=== PATIENT | male | born 1980 | race Caucasian/White ===

== ENCOUNTER 2017-04-27 23:21 | Inpatient (IN) | payer OTHER ==
[~2017-04-27] VITALS: Ht 188 cm; Wt 96.2 kg
--- NOTE | 2017-04-27 23:49 | NUR ---
pt bib ra with a c/o ams. pt is not speaking to staff. pt is on the monitor and continuous pulse ox. dr. magana was at the bedside. evaluating the pt.
[2017-04-27] MEDS ORDERED: ONDANSETRON HCL/PF 4 MG/2 ML VIAL ONE (23:54)
[2017-04-27] MEDS ORDERED: HALOPERIDOL LACTATE INJ 5 MG/ML VIAL ONE (23:58)
[2017-04-28] VITALS (12 sets, daily range): BP systolic 88–140; BP diastolic 51–91
[2017-04-28] MEDS ORDERED: ONDANSETRON HCL/PF - ER 4 MG/2 ML VIAL IV ONE
[2017-04-28] MEDS ORDERED: HALOPERIDOL LACTATE INJ 5 MG/ML VIAL IM ONE
[2017-04-28] MEDS ORDERED: IV NS 0.9% 1,000 ML BAG IV ONE
--- NOTE | 2017-04-28 | NUR ---
PT PULLED OFF ALL MONITOR LEADS AND IS TRYING TO GET OUT OF BED. PT PLACED ON 4 POINT RESTRAINTS.
--- NOTE | 2017-04-28 00:20 | NUR ---
PT LEFT FOR CT. 4 POINT RESTRAINTS REMOVED.
[2017-04-28 00:40] LABS: CALCIUM, SERUM 9.7 mg/dL (8.5-10.1); CARBON DIOXIDE 23 mmol/L (21-32); CHLORIDE 102 mmol/L (98-107); CREATININE 1.6 mg/dL (0.6-1.3); GLUCOSE 144 mg/dL (74-106); POTASSIUM 3.3 mmol/L (3.5-5.1); SODIUM SERUM 142 mmol/L (136-145); UREA NITROGEN, BLOOD 16 mg/dL (7-18)
[2017-04-28 00:47] LABS: ACETAMINOPHEN 0 ug/ml (10-30); ALANINE AMINOTRANSFERASE 149 U/L (12-78); ALBUMIN 5.2 g/dL (3.4-5.0); ALCOHOL, BLOOD < 3 mg/dL (0-0); ALKALINE PHOSPHATASE 95 U/L (46-116); ASPARTATE AMINOTRANSFERASE 38 U/L (15-37); BASOPHILS % (AUTO) 0.1 % (0.0-2.0); BILIRUBIN,DIRECT 0.2 mg/dL (0.0-0.2); BILIRUBIN,TOTAL 1.4 mg/dL (0.2-1.0); HEMATOCRIT 54 % (39-51); HEMOGLOBIN 18.1 g/dL (13.5-17.5); LYMPHOCYTES # (AUTO) 0.9 /CMM (0.8-4.8); LYMPHOCYTES % (AUTO) 6.6 % (20.0-44.0); MEAN CORPUSCULAR HEMOGLOBIN 27 PG (26.0-33.0); MEAN CORPUSCULAR HGB CONC 34 g/dl (31.0-36.0); MEAN CORPUSCULAR VOLUME 82 fL (80-96); MONOCYTES # (AUTO) 0.7 /CMM (0.1-1.30); MONOCYTES % (AUTO) 4.7 % (2.0-12.0); NEUTROPHILS # (AUTO) 12.6 /CMM (1.8-8.9); NEUTROPHILS % (AUTO) 88.6 % (43.0-81.0); PLATELET COUNT (AUTO) 241 /CMM (150-450); RED BLOOD CELL COUNT(AUTO) 6.59 MIL/uL (4.5-6.0); SALICYLATE < 0.2 mg/dL (2.8-20.0); TOTAL PROTEIN, SERUM 9.8 g/dL (6.4-8.2); WHITE BLOOD COUNT (AUTO) 14.2 K/uL (4.3-11.0)
--- NOTE | 2017-04-28 00:55 | NUR ---
PT RETURNED FROM CT.
[2017-04-28] MEDS ORDERED: HALOPERIDOL LACTATE INJ 5 MG/ML VIAL IV ONE (01:30)
[2017-04-28] MEDS ORDERED: DEXAMETHASONE SOD PHOSPHATE 10 MG/ML VIAL IV ONE (01:30)
[2017-04-28] MEDS ORDERED: LORAZEPAM INJ 2 MG/ML VIAL IV ONE (01:30)
[2017-04-28] MEDS ORDERED: CEFTRIAXONE 1GM BAG (ER ONLY) 1 GM/50 ML PIGGYBACK IV ONE (01:30)
--- NOTE | 2017-04-28 01:30 | NUR ---
PT PLACED BACK IN 4 POINT RETRAINTS.
--- NOTE | 2017-04-28 01:30 | NUR ---
DR. MCGRAW IS AT THE BEDSIDE SPEAKING TO THE PT'S .
[2017-04-28] MEDS ORDERED: HALOPERIDOL LACTATE INJ 5 MG/ML VIAL ONE (01:31)
[2017-04-28] MEDS ORDERED: CEFTRIAXONE 1GM BAG (ER ONLY) 50 ML IV ONE (01:31)
[2017-04-28] MEDS ORDERED: DEXAMETHASONE SOD PHOSPHATE 10 MG/ML VIAL ONE (01:31)
[2017-04-28] MEDS ORDERED: LORAZEPAM INJ 2 MG/ML VIAL ONE ×2 (01:32→05:23)
--- NOTE | 2017-04-28 01:40 | NUR ---
PT'S CONSENTED VERBALLY TO DR. MCGRAW TO PERFORM THE LP TO RULE OUT MENINGITIS. PT MOVING TOO MUCH FOR DR. MCGRAW TO PERFORM THE LP.
--- NOTE | 2017-04-28 01:40 | NUR ---
Note king in EDM - 04/28/17 at 0218 by DEYSI PT'S CONSENTED VERBALLY TO DR. MCGRAW TO PERFORM THE LP TO RULE OUT MENINGITIS. PT MOVING TOO MUCH FOR DR. MCGRAW TO PERFORM THE LP.
[2017-04-28] MEDS ORDERED: ACETAMINOPHEN 650 MG/SUPP.RECT RC ONE ×2 (02:39→03:00)
--- NOTE | 2017-04-28 03:38 | NUR ---
PT'S AXILLARY TEMP IS 102.8. DR. MCGRAW NOTIFIED.
--- NOTE | 2017-04-28 03:38 | NUR ---
PT IS TRYING TO GET UP OUT OF BED. PT IS STILL IN 4 PT RESTRAINTS. PT IS DIAPHORETIC. DR. MCGRAW IS AWARE.
[2017-04-28] MEDS ORDERED: KETOROLAC TROMETHAMINE INJ 30 MG/ML VIAL ONE (03:41)
--- NOTE | 2017-04-28 03:59 | NUR ---
PT IS TRYING TO SIT UP IN BED. PT'S IS AT THE BEDSIDE AND IS TALKING THE PT INTO LYING DOWN AND RESTING. PT IS NOT SPEAKING TO US. PT IS DIAPHORETIC, DR. MCGRAW IS AWARE.
[2017-04-28] MEDS ORDERED: KETOROLAC TROMETHAMINE INJ 30 MG/ML VIAL IV ONE (04:00)
--- NOTE | 2017-04-28 04:01 | NUR ---
XRAY IN PROGRESS AT THE BEDSIDE.
--- NOTE | 2017-04-28 04:23 | NUR ---
PT WAS CLEANED AND COLD COMPRESSES PLACED ON PT'S HEAD AND BEHIND NECK. NEW LINENS APPLIED. DIAPPER APPLIED. NEW GOWN. PT PLACED BACK ON THE MONITOR.
--- NOTE | 2017-04-28 05:09 | NUR ---
CALLING REPORT TO KAMRAN ANN
--- NOTE | 2017-04-28 05:21 | NUR ---
PT IS NOW ONLY IN 1 RESTRAINT. RUE. PT APPEARS CALM. WILL CONTINUE TO MONITOR.
--- NOTE | 2017-04-28 05:30 | NUR ---
RN LAUREN ADMITTING NOTES ADMITTED 36 YR OLD MALE, IN ALTERED STATE, ON NC@ 2L, WELL TOLERATED, NO SIGN OF FACIAL GRIMANCING NOTED, ADMIT DIAGNOSIS, R/O MENIGITIS, VS STABLE, AFEBRILE, HEAD TO TOE ASSESSMENT COMPLETED SKIN INTACT, PEEWEE PARLIAMENTARY ARCHIVIST ADMITTING PT, ASSESSED PT BY BED SIDE, PT NOT ABLE TO FOLLOW COMMAND, ALL ADMITTING ORDERS ENTERED PER PROTOCOL, NEURO CONSULT ORDERED WELL POSSIBLE LP TO BE DONE. WITH LAC 16 G, PATENT STARTED ON NS@100ML/HR, WELL JODY, NO INFILTRATION AT SITE. BY BED SIDE, ALL NEEDS MET.
[2017-04-28] MEDS ORDERED: Z GUARD REMEDY 2 OZ OINT TP PRN (06:00)
[2017-04-28] MEDS ORDERED: ZOLPIDEM TARTRATE 5 MG TABLET PO PRN (06:00)
[2017-04-28] MEDS ORDERED: HYDROCODONE/APAP 5/325MG 1 EACH TABLET PO PRN (06:00)
[2017-04-28] MEDS ORDERED: MAGNESIUM HYDROXIDE 30 ML UDC PO PRN (06:00)
[2017-04-28] MEDS: IV NS 0.9% 1,000 ML IV PRN ×3 (06:46→21:52)
--- NOTE | 2017-04-28 07:44 | NUR ---
LAUREN RN NOTE PATIENT IN BED APPEARS EXTREMELY DISORIENTED , PT AT BEDSIDE UNABLE TO REORIENT THE PATIENT PATIENT IS NON VERBAL AT THIS TIME REASON UNKNOWN PATIENT STATES THAT HE HAS BEEN NON VERBAL SINCE 9PM LAST NIGHT 04/27/17. PAIN APPEARS IN PAIN , SKIN RED, NO COUGHING NOTED , NO ISOLATION NOTED. AM RN PLACED PATIENT ON DROPLET ISOLATION DUE TO RULE OUT MENINGITIS , NOTIFIED CHARGE NURSE , PATIENT IS CURRENTLY AND HAS BEEN GIVEN A MASK WHILE AT BED SIDE. PATIENT POTASSIUM NOT GIVEN YET DUE TO MEDICATION NOT BEING AVAILABLE AT THIS TIME. RN WILL HANG FIRST DOSE SOON THE MEDICATION IS AVAILABLE. RN WILL CONTINUE TO FOLLOW
[2017-04-28] MEDS: ONDANSETRON HCL/PF 4 MG/2 ML VIAL IVP PRN ×3 (08:01→23:02)
[2017-04-28] MEDS ORDERED: VANCOMYCIN 1 GM in IV D5W 250 ML IV ONE (08:58)
[2017-04-28] MEDS ORDERED: FEE PK DOSING 1 MIN EA MC ONE (09:10)
[2017-04-28] MEDS: DEXAMETHASONE SOD PHOSPHATE 4 MG/ML VIAL IV SCH ×3 (09:14→22:53)
--- NOTE | 2017-04-28 09:53 | NUR ---
RN NOTE DISORIENTATION CONTINUES PATIENT HAS PULLED OUT IV ACCESS CHARGE NURSE AWARE AND HAS BEEN NOTIFIED MULTIPLE TIMES ABOUT THE NEED FOR A SITTER DUE TO PATIENT ALTERED MENTAL STATUS ,
[2017-04-28] MEDS ORDERED: CEFTRIAXONE 1 G in IV D5W 50 ML IV ONE (11:00)
[2017-04-28] MEDS ORDERED: AMPICILLIN 2 GM in IV NS 0.9% 100 ML IV SCH (11:00)
--- NOTE | 2017-04-28 11:00 | NUR ---
RN NOTE PATIENT LUMBER PUNCTURE PERFORMED AT BEDSIDE BY MD JEFFERS, RN ASSISTED AT BESIDE WELL MD TOOK SAMPLES PERSONAL TO THE LAB TO RECEIVE CULTURE RESULT. PATIENT TOLERATED WELL PATIENT WILL BE TRANSFERRED TO ICU REPORT GIVEN TO LOU COIN MACHINE OPERATOR, 2 GRAM ROCEPHIN AND AMPICILLIN SENT WITH PATIENT TO ICU , VANCOMYCIN ADMINISTERED PER ORDER . PATIENT REMAINS LETHARGIC HOWEVER AX0 X 3
--- NOTE | 2017-04-28 11:30 | NUR ---
SENIOR BOOKKEEPER RECEIVED PATIENT AWAKE, LETHARGIC IN APPEARANCE AFEBRILE COMPLAINTS OF HEADACHE WITH AN ON GOING IVF NS AT 100 ML MAINTAINED ON DROPLET ISOLATION ALL EXTREMITIES WITHIN NORMAL MONITORED CLOSELY
[2017-04-28 11:50] LABS: CSF GLUCOSE < 40 mg/dL (40-70); CSF PROTEIN 634.5 mg/dL (15-45)
[2017-04-28] MEDS: KETOROLAC TROMETHAMINE INJ 30 MG/ML VIAL IV PRN ×3 (12:22→23:33)
[2017-04-28] MEDS: AMPICILLIN 2 GM in IV NS 0.9% 100 ML IV SCH ×3 (12:59→20:46)
--- NOTE | 2017-04-28 13:08 | NUR ---
PROCESSING SUPERVISOR CALLED UP PHARMACY FOR POTASSIUM PREMIX SINCE ITS UNAVAILABLE IN THE [facility] IS STILL PREPARING MEDICATION FIRST BAG OF AMPICILLIN IV IS GIVEN AT 1214 THUS 1300 AMPICILLIN BAG IS NOT BE GIVEN SINCE ONLY THE TIMING WAS CHANGED FOR THE MEDICATION
[2017-04-28] MEDS: METRONIDAZOLE 500MG/ NS 100ML 500 MG in PREMIX 1 EA IV SCH ×2 (14:07→21:30)
[2017-04-28] MEDS: POTASSIUM CL. PREMIX PERIPHER. 50 ML IV SCH ×4 (16:28→20:46)
[2017-04-28] MEDS: ACETAMINOPHEN 325 MG TABLET PO PRN ×2 (16:49→23:33)
--- NOTE | 2017-04-28 18:24 | NUR ---
LAUNDERER HAND PATIENT STILL HAS SEVERE HEADACHE, LIGHT SENSITIVITY NOTED WELL PLACED ON A DIM LIT ROOM PAIN MEDICATION GIVEN ROUND THE CLOCK ICE CHIPS OFFERED MONITORED CLOSELY ENDORSED TO NOD
--- NOTE | 2017-04-28 19:20 | NUR ---
MACHINE ASSEMBLER SUPERVISOR NOTE RECEIVED PATIENT IN BED, SLEEPING COMFORTABLY. PATIENT OBSERVED TO BE LETHARGIC, DROWSY. PATIENT IS ALERT AND ORIENTED X2-3. ON DROPLET PRECAUTION D/T R/O MENINGITIS WITH LUMBAR TAP DONE THIS AM, PATIENT ON ATB. PATIENT IS SR WITH HR OF 70. PATIENT'S AT BEDSIDE. PATIENT WITH NO DISTRESS AT THIS TIME. IVF OF NS AT 150CC/HR RUNNING. PIV ON R AC AND R FOREARM, INTACT AND PATENT. NEEDS ANTICIPATED AND MET. SAFETY AND COMFORT ENSURED. WILL MONITOR CLOSELY.
--- NOTE | 2017-04-28 21:17 | NUR ---
RN NOTE LATE ENTRY INITIAL PHYSICAL ASSESSMENT COMPLETE. PM CHARGE EVITA NURSE NOTIFIED ABOUT THE COMPLETION OF ASSESSMENT. ICU CHARGE NURSE LEONIE NOTIFIED BY CHARGE NURSE NISHANT JAMA COMPLETED THE ASSESSMENT TO TH BEST OF HER KNOWLEDGE.
[2017-04-28] MEDS: VANCOMYCIN 1 GM in IV D5W 250 ML IV SCH (22:52)
--- NOTE | 2017-04-28 23:35 | NUR ---
WIRE FRAME DIPPER NOTE PATIENT COMPLAINING OF SEVERE HEADACHE, PRESSURE LIKE AND THROBBING, 10/10 PAIN SCALE, AGGRAVATED WITH COUGHING AND SNEEZING. PATIENT MEDICATED WITH DECADRON ORDERED AND TORADOL PRN. WILL MONITOR CLOSELY.
[2017-04-29] VITALS (28 sets, daily range): BP systolic 82–145; BP diastolic 36–93
[2017-04-29] MEDS ORDERED: MORPHINE SULFATE INJ 2 MG/ML DISP.SYRIN IV ONE
--- NOTE | 2017-04-29 | NUR ---
FORMING MACHINE TENDER NOTE BRANDT VIDES NP, MADE AWARE OF THE PATIENT'S C/O PAIN. COMMERCIAL PROPERTY MANAGER ASSESSED PATIENT, OBSERVED TO BE MORE ALERT AND ORIENTED WHEN COMPARED UPON ADMIT. ORDER PLACED FOR ONE TIME PAIN MEDICATION, TO BE GIVEN ORDERED. PAIN IS UNRELIEVED WITH TORADOL GIVEN PRIOR. WILL MONITOR FOR EFFECTIVENESS.
[2017-04-29] MEDS ORDERED: MORPHINE SULFATE INJ 2 MG/ML DISP.SYRIN ONE (00:07)
[2017-04-29] MEDS: IV NS 0.9% 1,000 ML IV PRN ×2 (01:10→12:44)
[2017-04-29] MEDS: AMPICILLIN 2 GM in IV NS 0.9% 100 ML IV SCH ×6 (01:10→21:38)
--- NOTE | 2017-04-29 01:22 | NUR ---
SALES PROFESSIONAL BILINGUAL NOTE PATIENT IN BED, SLEEPING COMFORTABLY. AROUSABLE WITH VERBAL AND TACTILE STIMULI. PATIENT IN NO DISTRESS. VS MONITORED CLOSELY, NOTED MARGINAL BP POST PAIN MEDICATION GIVEN FOR C/O SEVERE HEADACHE, 02/07. CURRENT VS ARE: 89/51, 79, 20, 98%, AFEBRILE. ON CLOSE MONITORING.
[2017-04-29] MEDS ORDERED: CEFTRIAXONE 1 G in IV D5W 50 ML IV SCH (02:00)
[2017-04-29] MEDS: CEFTRIAXONE 2 G in IV D5W 100 ML IV SCH ×2 (02:02→14:28)
[2017-04-29] MEDS: DEXAMETHASONE SOD PHOSPHATE 4 MG/ML VIAL IV SCH ×4 (05:03→22:30)
[2017-04-29] MEDS: METRONIDAZOLE 500MG/ NS 100ML 500 MG in PREMIX 1 EA IV SCH ×3 (05:03→22:27)
[2017-04-29 05:22] LABS: BASOPHILS # (AUTO) 0.1 /CMM (0.0-0.2); BASOPHILS % (AUTO) 0.2 % (0.0-2.0); HEMATOCRIT 39 % (39-51); HEMOGLOBIN 13.6 g/dL (13.5-17.5); LYMPHOCYTES # (AUTO) 1.2 /CMM (0.8-4.8); LYMPHOCYTES % (AUTO) 3.7 % (20.0-44.0); MEAN CORPUSCULAR HEMOGLOBIN 28 PG (26.0-33.0); MEAN CORPUSCULAR HGB CONC 35 g/dl (31.0-36.0); MEAN CORPUSCULAR VOLUME 81 fL (80-96); MONOCYTES # (AUTO) 1.5 /CMM (0.1-1.30); MONOCYTES % (AUTO) 4.9 % (2.0-12.0); NEUTROPHILS # (AUTO) 28.7 /CMM (1.8-8.9); NEUTROPHILS % (AUTO) 91.2 % (43.0-81.0); PLATELET COUNT (AUTO) 224 /CMM (150-450); RDW COEFFICIENT OF VARIATION 12.4 (11.5-15.0); RED BLOOD CELL COUNT(AUTO) 4.87 MIL/uL (4.5-6.0)
[2017-04-29 05:32] LABS: WHITE BLOOD COUNT (AUTO) 31.5 K/uL (4.3-11.0)
[2017-04-29 05:41] LABS: BILIRUBIN,TOTAL 0.4 mg/dL (0.2-1.0); CALCIUM, SERUM 8.5 mg/dL (8.5-10.1); CREATININE 1.2 mg/dL (0.6-1.3); MAGNESIUM 2.3 mg/dL (1.8-2.4); PHOSPHORUS 2.8 mg/dL (2.5-4.9); POTASSIUM 4.9 mmol/L (3.5-5.1); TOTAL PROTEIN, SERUM 6.8 g/dL (6.4-8.2)
--- NOTE | 2017-04-29 06:00 | NUR ---
STONE OPERATOR NOTE PATIENT'S CSF WBC IS NOTED TO BE 20,480. PATIENT'S AM CBC DRAWN WITH WBC VALUE OF 31.5. INFORMED BRANDT VIDES NP OF THE NOTED VALUES. PATIENT ALSO NOTED WITH URINE OUTPUT OF 750cc, VIDAL COLORED URINE FOR THE SHIFT; PATIENT WAS GIVEN IV BOLUS 2L ORDERED WITH IVF ORDERED OF 150cc/hr. BRANDT KNOT PICKER CLOTH MADE AWARE. NNO GIVEN. PATIENT IS ON 4 ATB FOR EMPIRIC THERAPY, AWAITING ID CONSULT.
[2017-04-29] MEDS: ONDANSETRON HCL/PF 4 MG/2 ML VIAL IVP PRN ×3 (06:11→21:48)
[2017-04-29] MEDS: KETOROLAC TROMETHAMINE INJ 30 MG/ML VIAL IV PRN (06:12)
[2017-04-29 06:26] LABS: BAND % (MANUAL) 23 % (0.0-5.0); LYMPHOCYTES % (MANUAL) 3 % (16-48); MONOCYTES % (MANUAL) 11 % (0-11.0); NEUTROPHILS % (MANUAL) 63 (42-76)
--- NOTE | 2017-04-29 06:31 | NUR ---
CNC FIELD SERVICE ENGINEER NOTE PATIENT COMPLAINED OF SEVERE HEADACHE 02/07 WITH VS CHANGES OF SBP AT 136/82, HR OF 81. PATIENT WITH X1 EPISODE OF EMESIS, 100cc, BILE CONSISTENCY. PATIENT GIVEN TORADOL AND ZOFRAN PRN. NEEDS ANTICIPATED AND MET. SAFETY AND COMFORT ENSURED. FAMILY AT BEDSIDE.
--- NOTE | 2017-04-29 07:30 | NUR ---
MEMBERSHIP MANAGER RECEIVED PATIENT AWAKE SITTING ON BED WITH ON GOING IVF AT 150 ML/HR ALERT ORIENTED X 3 AFEBRILE COMPLAINTS OF HEADACHE GIVEN TYLENOL FOR PAIN FOR THE MEANTIME NO NAUSEA OR VOMITING AT THE MOMENT
[2017-04-29] MEDS: ACETAMINOPHEN 325 MG TABLET PO PRN (09:03)
[2017-04-29] MEDS: VANCOMYCIN 1 GM in IV D5W 250 ML IV SCH (09:03)
[2017-04-29] MEDS ORDERED: MORPHINE SULFATE INJ 2 MG/ML DISP.SYRIN IM PRN (10:00)
[2017-04-29] MEDS ORDERED: MORPHINE SULFATE INJ 4 MG/ML DISP.SYRIN IV PRN (10:30)
--- NOTE | 2017-04-29 10:37 | NUR ---
COMMUNICATION EQUIPMENT REPAIRER ASKED DR. VORA IF MORPHINE CAN BE GIVEN TO PATIENT FOR SEVERE PAIN MORPHINE IS ORDERED FOR 2 MG q1 PRN MONITORED CLOSELY
[2017-04-29] MEDS: MORPHINE SULFATE INJ 4 MG/ML DISP.SYRIN IV PRN ×3 (14:29→21:39)
[2017-04-29] MEDS ORDERED: Potassium Chloride 20 MEQ in IV D5/0.45 NACL 1,000 ML IV PRN (15:30)
[2017-04-29] MEDS: IV D5/0.45 NACL 1,000 ML IV PRN (16:53)
[2017-04-29] MEDS: VANCOMYCIN 1.25 GM in IV D5W 500 ML IV SCH (17:40)
--- NOTE | 2017-04-29 19:18 | NUR ---
TOWER DIRECTOR NOTE RECEIVED PATIENT IN BED, AWAKE AND ALERT AND ORIENTED X4. PATIENT MEDICATED WITH MORPHINE BY AM NURSE AT 1830, PATIENT STILL COMPLAINING OF ACUTE HEADACHE, 3/10, ACHING AND CRAMPING. PATIENT'S NEEDS ANTICIPATED AND MET AT THIS TIME. SAFETY AND COMFORT ENSURED. PATIENT IS ON ROOM AIR, SR AT 86. IVF OF D5 1/2NS RUNNING AT 80cc/hr, VANCO INFUSING ORDERED. STILL ON DROPLET PRECAUTIONS, CLOSELY OBSERVED. WILL MONITOR CLOSELY.
[2017-04-30] VITALS (14 sets, daily range): BP systolic 104–129; BP diastolic 56–87
[2017-04-30] MEDS: VANCOMYCIN 1.25 GM in IV D5W 500 ML IV SCH ×3 (00:08→18:16)
[2017-04-30] MEDS: AMPICILLIN 2 GM in IV NS 0.9% 100 ML IV SCH ×6 (02:02→21:00)
[2017-04-30] MEDS: CEFTRIAXONE 2 G in IV D5W 100 ML IV SCH ×2 (02:45→15:29)
[2017-04-30] MEDS: MORPHINE SULFATE INJ 4 MG/ML DISP.SYRIN IV PRN ×6 (03:08→23:49)
[2017-04-30] MEDS: ONDANSETRON HCL/PF 4 MG/2 ML VIAL IVP PRN ×3 (03:08→18:27)
[2017-04-30] MEDS: DEXAMETHASONE SOD PHOSPHATE 4 MG/ML VIAL IV SCH ×4 (04:42→23:18)
[2017-04-30] MEDS: METRONIDAZOLE 500MG/ NS 100ML 500 MG in PREMIX 1 EA IV SCH ×3 (04:43→23:18)
[2017-04-30 05:49] LABS: CALCIUM, SERUM 8.5 mg/dL (8.5-10.1); POTASSIUM 4.2 mmol/L (3.5-5.1)
--- NOTE | 2017-04-30 06:34 | NUR ---
LAMP SHADE MAKER NOTE PATIENT WITH NO ACUTE CHANGE IN CONDITION OBSERVED OVERNIGHT. PATIENT STILL COMPLAINING OF HEADACHE AND BACK PAIN, PATIENT'S PAIN MANAGED WELL WITH NURSING INTERVENTIONS AND PRN MORPHINE SULFATE ORDERED. VS MONITORED CLOSELY. NO OTHER SIGNS OF INFECTION NOTED. ALL DUE MEDS GIVEN ORDERED. IVF ORDERED. PATIENT WITH GOOD UO OBSERVED, PATIENT'S URINE CHARACTERISTICS IS OBSERVED TO BE FROM VIDAL COLORED TO CLEAR, YELLOW URINE. REMAINS SR. STABLE ON ROOM AIR WITH NO RESPIRATORY DISTRESS. NEEDS ANTICIPATED AND MET. SAFETY AND COMFORT ENSURED. BED IN LOW AND LOCKED POSITION. CALL LIGHT IN REACH. WILL ENDORSE ACCORDINGLY FOR CONTINUITY OF CARE.
--- NOTE | 2017-04-30 07:30 | NUR ---
IT ENGINEER RECEIVED PATIENT AWAKE LYING ON BED WITH ONGOING IV RUNNING AT 80 ML/HR AFEBRILE HEADACHE NOTED OFFERED MEAL BUT STILL WITH POOR APPETITE ABLE TO TRANSFER TO COMMODE BY HIMSELF PATIENT IS MORE ALERT MONITORED CLOSELY
--- NOTE | 2017-04-30 10:21 | NUR ---
SECURITIES ATTORNEY PATIENT IS TRANSFERRED TO [facility], REPOST GIVEN TO SOON, CHARGE NURSE
--- NOTE | 2017-04-30 11:00 | NUR ---
DIRECTOR OF PLANT OPERATIONS NOTE RECEIVED PATIENT ROM ICU ALERT,ORIENTED X3 PLACED ON TELE SR , BED IN LOWEST AND LOCKED POSITION ON IVF ORDERED FAMILY AT BEDSIDE, PLAN OF CARE DISCUSSED WITH PATIENT, WILL CONT TO MONITOR CLOSELY
--- NOTE | 2017-04-30 13:00 | NUR ---
HARNESS INSTALLER NOTE EEN BY BINA JEFFERS DNP
[2017-04-30] MEDS ORDERED: oxyCODONE/APAP (5/325 MG) 1 UDTAB TABLET PO PRN (17:00)
--- NOTE | 2017-04-30 18:00 | NUR ---
COMPUTERIZED MILL MILL RECORDER NOTE NEW HL ON LT AC FREDI 20 INSERTED WITH GOOD BLOOD RETURN
--- NOTE | 2017-04-30 18:21 | NUR ---
RUNNER MAN NOTE VANCO LEVEL OK TO ADMINISTER VANCO PER PHARMACIST
--- NOTE | 2017-04-30 18:51 | NUR ---
SHIP UNLOADER NOTE ZOFRAN IVP GIVEN ORDERED WILL F]U ,FAMILY AT BEDSIDE
[2017-05-01] VITALS: BP 107/63
[2017-05-01] MEDS: AMPICILLIN 2 GM in IV NS 0.9% 100 ML IV SCH ×6 (01:24→20:01)
[2017-05-01] MEDS: VANCOMYCIN 1.25 GM in IV D5W 500 ML IV SCH ×3 (02:01→17:00)
[2017-05-01 04:00] VITALS: BP 109/57
[2017-05-01] MEDS: CEFTRIAXONE 2 G in IV D5W 100 ML IV SCH ×2 (04:14→14:59)
[2017-05-01] MEDS: DEXAMETHASONE SOD PHOSPHATE 4 MG/ML VIAL IV SCH ×3 (04:54→17:01)
[2017-05-01] MEDS: IV D5/0.45 NACL 1,000 ML IV PRN (04:55)
[2017-05-01] MEDS: METRONIDAZOLE 500MG/ NS 100ML 500 MG in PREMIX 1 EA IV SCH ×3 (04:55→20:45)
[2017-05-01 06:16] LABS: BASOPHILS % (AUTO) 0.1 % (0.0-2.0); HEMATOCRIT 37 % (39-51); HEMOGLOBIN 12.7 g/dL (13.5-17.5); LYMPHOCYTES # (AUTO) 1.4 /CMM (0.8-4.8); LYMPHOCYTES % (AUTO) 7.7 % (20.0-44.0); MEAN CORPUSCULAR HEMOGLOBIN 28 PG (26.0-33.0); MEAN CORPUSCULAR HGB CONC 35 g/dl (31.0-36.0); MEAN CORPUSCULAR VOLUME 81 fL (80-96); MONOCYTES # (AUTO) 0.8 /CMM (0.1-1.30); MONOCYTES % (AUTO) 4.2 % (2.0-12.0); NEUTROPHILS # (AUTO) 16.3 /CMM (1.8-8.9); PLATELET COUNT (AUTO) 290 /CMM (150-450); RDW COEFFICIENT OF VARIATION 12.6 (11.5-15.0); RED BLOOD CELL COUNT(AUTO) 4.53 MIL/uL (4.5-6.0); WHITE BLOOD COUNT (AUTO) 18.5 K/uL (4.3-11.0)
[2017-05-01 07:15] LABS: CALCIUM, SERUM 8.4 mg/dL (8.5-10.1); MAGNESIUM 2.1 mg/dL (1.8-2.4); PHOSPHORUS 3.1 mg/dL (2.5-4.9); POTASSIUM 4.1 mmol/L (3.5-5.1)
--- NOTE | 2017-05-01 07:26 | NUR ---
EDUCATION REPORTER NOTES RECEIVED PT ON BED AWAKE ORIENTED X4 ON ROOM AIR SATURATING WELL. IV ACCESS ON LAC #22 NO SIGN OF REDNESS OR PAIN, IV ACCESS D51/2 NS 80ML/HR RUNNING WELL. SIDE RAILS UP. HEAD OF BED ELEVATED. CALL LIGHT WITHIN REACH. WILL CONTINUE TO MONITOR PT CLOSELY.
[2017-05-01 08:00] VITALS: BP 101/57
[2017-05-01] MEDS: ACETAMINOPHEN 325 MG TABLET PO PRN (08:45)
[2017-05-01 12:00] VITALS: BP_SYST 103; BP_SYST 110; BP_DIAS 54; BP_DIAS 60
[2017-05-01 16:00] VITALS: BP 107/58
[2017-05-01] MEDS: MORPHINE SULFATE INJ 4 MG/ML DISP.SYRIN IV PRN ×2 (16:45→23:48)
--- NOTE | 2017-05-01 18:47 | NUR ---
WAGON WASHER NOTES NO ACUTE CHANGES NOTED THE SHIFT. ON ROOM AIR TOLERATING WELL, NO SIGN OF DISTRESS. DUE MEDS GIVEN. HEAD OF BED ELEVATED. WILL ENDORSE TO THE PM NURSE.
--- NOTE | 2017-05-01 19:15 | NUR ---
KETTLE OPERATOR HEAD NOTES. RECEIVED PATIENT AND REPORT FROM DAY SHIFT.
[2017-05-01 20:00] VITALS: BP 100/56
[2017-05-02] VITALS: BP 117/65
[2017-05-02] MEDS: AMPICILLIN 2 GM in IV NS 0.9% 100 ML IV SCH ×6 (00:07→20:31)
[2017-05-02] MEDS: VANCOMYCIN 1.25 GM in IV D5W 500 ML IV SCH ×3 (01:11→18:16)
[2017-05-02] MEDS: CEFTRIAXONE 2 G in IV D5W 100 ML IV SCH ×2 (03:34→14:16)
[2017-05-02 04:00] VITALS: BP 99/56
[2017-05-02] MEDS: METRONIDAZOLE 500MG/ NS 100ML 500 MG in PREMIX 1 EA IV SCH (04:50)
[2017-05-02] MEDS ORDERED: DEXAMETHASONE SOD PHOSPHATE 4 MG/ML VIAL IV SCH (05:00)
[2017-05-02 07:30] LABS: BASOPHILS % (AUTO) 0.1 % (0.0-2.0); EOSINOPHILS % (AUTO) 0.1 % (0.0-6.0); HEMATOCRIT 38 % (39-51); HEMOGLOBIN 13.1 g/dL (13.5-17.5); LYMPHOCYTES # (AUTO) 1.8 /CMM (0.8-4.8); LYMPHOCYTES % (AUTO) 9.9 % (20.0-44.0); MEAN CORPUSCULAR HEMOGLOBIN 28 PG (26.0-33.0); MEAN CORPUSCULAR HGB CONC 35 g/dl (31.0-36.0); MEAN CORPUSCULAR VOLUME 81 fL (80-96); MONOCYTES # (AUTO) 1.1 /CMM (0.1-1.30); MONOCYTES % (AUTO) 6.1 % (2.0-12.0); NEUTROPHILS # (AUTO) 15.1 /CMM (1.8-8.9); NEUTROPHILS % (AUTO) 83.8 % (43.0-81.0); PLATELET COUNT (AUTO) 327 /CMM (150-450); RDW COEFFICIENT OF VARIATION 12.5 (11.5-15.0); RED BLOOD CELL COUNT(AUTO) 4.67 MIL/uL (4.5-6.0)
[2017-05-02 08:00] VITALS: BP 102/38
[2017-05-02 08:00] LABS: CALCIUM, SERUM 8.5 mg/dL (8.5-10.1); MAGNESIUM 2.1 mg/dL (1.8-2.4); PHOSPHORUS 3.5 mg/dL (2.5-4.9)
[2017-05-02] MEDS ORDERED: KETOROLAC TROMETHAMINE INJ 30 MG/ML VIAL IV PRN (10:30)
[2017-05-02 11:36] LABS: BAND % (MANUAL) 4 % (0.0-5.0); LYMPHOCYTES % (MANUAL) 14 % (16-48); MONOCYTES % (MANUAL) 2 % (0-11.0); NEUTROPHILS % (MANUAL) 80 (42-76)
[2017-05-02 12:13] LABS: *BACT STREP PNEUMONIAE AG Positive (Negative)
[2017-05-02 16:00] VITALS: BP 110/64
[2017-05-02] MEDS: SUCRALFATE 1 G/10 ML UDC GT SCH ×2 (16:59→20:31)
[2017-05-02] MEDS: PANTOPRAZOLE 40 MG TABLET.DR PO SCH (16:59)
[2017-05-02] MEDS: IV D5/0.45 NACL 1,000 ML IV PRN (18:21)
[2017-05-02 21:50] VITALS: BP 117/65
[2017-05-03] MEDS: AMPICILLIN 2 GM in IV NS 0.9% 100 ML IV SCH ×5 (00:35→17:00)
[2017-05-03] MEDS: VANCOMYCIN 1.25 GM in IV D5W 500 ML IV SCH ×3 (01:12→17:11)
[2017-05-03 04:00] VITALS: BP 102/61
[2017-05-03] MEDS: CEFTRIAXONE 2 G in IV D5W 100 ML IV SCH ×2 (04:24→15:29)
[2017-05-03 06:50] LABS: BASOPHILS % (AUTO) 0.1 % (0.0-2.0); EOSINOPHILS # (AUTO) 0.2 /CMM (0.0-0.7); EOSINOPHILS % (AUTO) 1.2 % (0.0-6.0); HEMATOCRIT 39 % (39-51); HEMOGLOBIN 13.4 g/dL (13.5-17.5); LYMPHOCYTES # (AUTO) 3.5 /CMM (0.8-4.8); LYMPHOCYTES % (AUTO) 20.5 % (20.0-44.0); MEAN CORPUSCULAR HEMOGLOBIN 28 PG (26.0-33.0); MEAN CORPUSCULAR HGB CONC 34 g/dl (31.0-36.0); MEAN CORPUSCULAR VOLUME 82 fL (80-96); MONOCYTES # (AUTO) 0.6 /CMM (0.1-1.30); MONOCYTES % (AUTO) 3.6 % (2.0-12.0); NEUTROPHILS # (AUTO) 12.8 /CMM (1.8-8.9); NEUTROPHILS % (AUTO) 74.6 % (43.0-81.0); PLATELET COUNT (AUTO) 319 /CMM (150-450); RDW COEFFICIENT OF VARIATION 13.1 (11.5-15.0); RED BLOOD CELL COUNT(AUTO) 4.77 MIL/uL (4.5-6.0); WHITE BLOOD COUNT (AUTO) 17.2 K/uL (4.3-11.0)
[2017-05-03 07:04] LABS: CALCIUM, SERUM 7.8 mg/dL (8.5-10.1); PHOSPHORUS 3.5 mg/dL (2.5-4.9); POTASSIUM 3.6 mmol/L (3.5-5.1)
[2017-05-03 08:00] VITALS: BP 102/61
[2017-05-03] MEDS: PANTOPRAZOLE 40 MG TABLET.DR PO SCH (08:31)
[2017-05-03] MEDS: SUCRALFATE 1 G/10 ML UDC GT SCH ×3 (08:31→18:36)
[2017-05-03] MEDS ORDERED: DEXAMETHASONE SOD PHOSPHATE 4 MG/ML VIAL IV SCH (09:00)
[2017-05-03] MEDS: ACETAMINOPHEN 325 MG TABLET PO PRN (14:09)
[2017-05-03] MEDS ORDERED: CEFT2VIA14 IV (14:31)
[2017-05-03] MEDS ORDERED: RIFA600V4 IV (14:31)
[2017-05-03] MEDS ORDERED: VANC2PLA3 IV (14:31)
[2017-05-03 16:00] VITALS: BP 133/75
--- NOTE | 2017-05-03 19:30 | NUR ---
MS RN NOTES. PT WITH CONTACT, DROPLET PRECS R/T: POSSIBLE MENINGITIS. PT PREPARED FOR D/C PER . PT A&0X3 WITH AT BEDSIDE. PT TOLERATING ROOM AIR WITH NO SOB AND SAO2 WNL. PT REPORTING NO PAIN. PT REMAINS WITH MIDLINE AT R UA INTACT AND OPERATIONAL FOR CONTINUED HOME CARE INFUSIONS. PT HAS SPOKEN TO AND HOME CARE AGENCY, PT CONFIRMED WITH BINA VORA THAT ALL MEDICATIONS ARE IN ORDER. PT BREIFED ON SOH D/C PACKET. PT WITH ALL BELONGING AND DOCUMENT SIGNED. PT AND PT VERBALIZING RESOURCES, UNDERSTANDING AND INTENT TO FOLLOW D/C POC. PT PROVIDED MASKS FOR D/C. PT LEFT AMBULATORY WITH . PT WITHOUT CONCERN OR COMPLAINT.
--- NOTE | 2017-05-03 19:43 | NUR ---
MS RN NOTES. PT WITH CONTACT, DROPLET PRECS R/T: POSSIBLE MENINGITIS. PT A&0X3 RESTING IN HIGH SEMI FOWLERS, AWAKE AND CONVERSATIONAL. PT TOLERATING ROOM AIR WITH NO SOB AND SAO2 WNL. PT REPORTING MINOR GENERALIZED ACHES AND REQUESTING TYLENOL. PT WITH MIDLINE AT R UA INTACT AND OPERATIONAL. BED IN LOWEST LOCKED POSITION WITH HAND RAILS X2 AND CALL SALINAS WITHIN REACH. PT BRIEFED ON TODAY'S POC AND IS WITHOUT CONCERN OR COMPLIANT AT THIS TIME. Addendum: 05/03/17 at 1950 by PURVI EATON RN TIME 0730 AM
--- NOTE | 2017-05-04 00:15 | NUR ---
RN/NOTES PT.HAS BEEN ON MORPHINE DRIP AT 3MG/HR VIA SECOND LANGUAGE TUTOR PUMP FOR COMFORT CARE.PT FOUND W/ ABSENT RESPIRATIONS,ABSENT HEART TONES,NO PALPABLE PULSE OR BLOOD PRESSURE.PUPILS FIXED,NON-REACTIVE.PRONOUNCED AT 0015.CALL PLACED TO DR. LAUREANO GROUP TESTER FOR Buy buy tea.INFORMED ANSWERING SERVICE RE-DEMISE OF PT.
== END 2017-05-03 18:30 | disposition home health service (06) | DRG 871 ==
LOC: ER 23:23 → TELE-TD 04-28 04:55 → ICU 04-28 10:52 → TELE1 04-30 10:55 → MEDSG1 05-02 11:34
PROVIDERS: ADMIT Nurse Practitioner Acute Care; ATTEND Nurse Practitioner Acute Care
PROC: 009U3ZX Drainage of Spinal Canal, Percutaneous Approach, Diagnostic (ICD-10-PCS; principal; 2017-04-28)
PROC: B546ZZA Ultrasonography of Right Subclavian Vein, Guidance (ICD-10-PCS; 2017-05-02)
PROC: 05H533Z Insertion of Infusion Device into Right Subclavian Vein, Percutaneous Approach (ICD-10-PCS; 2017-05-02)
DX: A41.9 Sepsis, unspecified organism (principal); G00.0 Hemophilus meningitis; N17.0 Acute kidney failure with tubular necrosis; G00.1 Pneumococcal meningitis; G92 Toxic encephalopathy; E86.0 Dehydration; E87.6 Hypokalemia; E80.6 Other disorders of bilirubin metabolism; R74.0 Nonspecific elevation of levels of transaminase and lactic acid dehydrogenase [LDH]; H66.91 Otitis media, unspecified, right ear
CPT/HCPCS: 36415; 36569; 70450-TC; 71010-TC; 80048-TC; 80053-TC; 80061-TC; 80076-TC; 80202-TC; 82140-TC; 83735-TC; 84100-TC; 85025-TC; 86694; 87070-TC; 87802; 87899; 89051-TC; A4216; A4606; A6403; G0480; J0290; J0696; J1100; J1630; J1885; J2060; J2270; J2405; J3370; J3480; J3490; J7030; J7060; Z7610

== ENCOUNTER 2017-05-08 12:20 | Outpatient (CLI) | payer OTHER ==
[~2017-05-08 12:20] MED LIST: CEFT2VIA14 IV; RIFA600V4 IV; VANC2PLA3 IV
[2017-05-08 12:21] VITALS: BP 115/70
== END 2017-05-08 23:59 | disposition home or self-care (01) ==
LOC: MSC 12:20
PROVIDERS: ATTEND Internal Medicine
DX: G00.9 Bacterial meningitis, unspecified (principal); H66.90 Otitis media, unspecified, unspecified ear